=== PATIENT | female | born 1935 | race Caucasian/White ===

== ENCOUNTER 2016-07-03 18:23 | Emergency (ER) | payer MEDICARE, BC ==
--- NOTE | 2016-07-03 18:49 | EDM.PDOC ---
ED HISTORY OF PRESENT ILLNESS - General Chief Complaint: Cardiovascular Problem Stated Complaint: high BP Time Seen by Provider: 07/03/16 18:25 Source: Reports: Patient History Limitations: Reports: No limitations - History of Present Illness INITIAL COMMENTS - FREE TEXT/NARRATIVE: According to patient she claims that she checked her blood pressure at home and it was 215/100mmhg. She did not have any symptoms , but wanted to have it rechecked and hence she came into emergency room. Pt claims that she has hypertension and on lisinopril 10mg daily. her primary care provider is in [place]. No chest pain, headache, weakness, nausea or vomiting. Other colon she feels fine. Pt claims that she does use herbal medicine, believes in alternative medicines. Her herbal specialist has told her that her blood pressure might go up on the herbs she is taking. She takes 3 different herbs.If her blood pressure elevates , she has been advised to stop it for few weeks and restart. She restarted it in April 2016. Pt claims that she can feel when her BP is elevated. also her herbal specialist has told her that she has ulcer in her stomach. Associated Symptoms: Denies: confusion, chest pain, cough, diaphoresis, fever/ chills, headaches, nausea/vomiting, rash, seizure, shortness of breath, syncope , weakness - Related Data Allergies/ADRs: Allergies Allergy/AdvReac Type Severity Reaction Status Date / Time pseudoephedrine Allergy Tachycardia Verified 07/03/16 18:54 [From [facility]] Home Meds: Home Meds Lisinopril 10 mg PO DAILY 07/03/16 [History] ED ROS GENERAL - Review of Systems Review Of Systems: See Below Constitutional: Denies: fever, chills, weakness, diaphoresis HEENT: Denies: Ear pain, Eye discharge, Sinus problem, Throat pain, Throat swelling Respiratory: Denies: Shortness of Breath, Cough, Sputum Cardiovascular: Denies: Chest pain, Edema, Lightheadedness GI/Abdominal: Denies: Abdominal pain, Constipation, Diarrhea, Nausea, Vomiting Musculoskeletal: Reports: shoulder pain (shoulder have been hurting as she has been doing yard work). Denies: neck pain, joint pain, joint swelling Skin: Denies: pruritis, rash Neurological: Denies: Confusion, Dizziness, Headache, Numbness, Tingling, Tremors, Trouble Speaking, Difficulty Walking, Weakness, Change in Speech, Gait Disturbance Psychiatric: Denies: Agitation, Anxiety ED EXAM, GENERAL - Physical Exam Exam: See Below Exam Limited By: No limitations General Appearance: alert, WD/WN, no apparent distress Eye Exam: bilateral eye: EOMI, PERRL Ears: normal external exam, normal canal, hearing grossly normal, normal TMs Ear Exam: bilateral ear: auricle normal, canal normal, TM normal Nose: normal inspection, normal mucosa, no blood Throat/Mouth: Normal inspection, Normal lips, Normal teeth, Normal gums, Normal oropharynx, Normal voice, No airway compromise Head: atraumatic, normocephalic Neck: normal inspection, supple, non-tender, full range of motion Respiratory/Chest: no respiratory distress, lungs clear, normal breath sounds, no accessory muscle use, chest non-tender Cardiovascular: normal peripheral pulses, regular rate, rhythm, no edema, no gallop, no JVD, no murmur, no rub Peripheral Pulses: 2+: radial (L), radial (R), dorsalis pedis (L), dorsalis pedis (R) GI/Abdominal: normal bowel sounds, soft, non tender, no organomegaly, no distention, no abnormal bruit, no mass Extremities: normal inspection, normal range of motion, non-tender, normal capillary refill, no pedal edema Neurological: alert, oriented, CN II-XII intact, normal cognition, normal gait, normal reflexes, no motor/sensory deficits EKG INTERPRETATION EKG Date: 07/03/16 Rhythm: NSR Rate (beats/min): 82 [place]: normal P-wave: present QRS: normal ST-T: normal QT: normal Course - Vital Signs Text/Narrative:: Pt has no symptoms, but her blood pressure is 203/84mmhg. Clinical exam is normal. Her EKG is in normal sinus rhythm with rate of 82. She did receive Clonidine 0.1mg orally and her Blood did drop to 197/88mmhg. Apparently my concern is the herbal medication she has been taking. She does say that they rise her blood pressure and her herbal specialist has told her to stop and restart which she is doing. With her pressures going as high as they do , she is at risk for CVA or Acute coronary injury. I have advised patient to talk to her primary care physician about this. At this point, her CBC and CMP are normal. Her troponin is negative and her EKG is in normal sinus rhythm. She has been asymptomatic although the emergency room visit. Her Blood pressure did come down into 160s systolic. I have advised patient to stop the herbal medication and followup with her primary care physician tomorrow for quick recheck. Last Recorded V/S: Last Vital Signs Temp 99.9 F 07/03/16 19:00 Pulse 95 07/03/16 19:00 Resp 16 07/03/16 19:00 BP Pulse Ox - Orders/Labs/Meds Orders: Active Orders 24 hr Category Date Time Status EKG Documentation Completion [RC] ASDIRECTED Care 07/03/16 18:42 Active Labs: Laboratory Tests 07/03/16 07/03/16 Range/Units 18:43 18:43 WBC 9.0 (4.0-11.0) K/uL RBC 4.71 (3.80-5.80) M/uL Hgb 13.2 (11.5-16.5) g/dL Hct 40.7 (37.0-47.0) % MCV 86 (76-96) fL MCH 28.0 (27.0-32.0) pg MCHC 32.4 (31.0-35.0) g/dL RDW 13.2 (11.0-16.0) % Plt Count 297 (150-500) K/uL MPV 10.1 H (6.0-10.0) fL Neut % (Auto) 54.9 (45.0-70.0) % Lymph % (Auto) 37.3 (20.0-40.0) % [place] % (Auto) 7.1 (3.0-10.0) % Eos % (Auto) 0.6 L (1.0-5.0) % Baso % (Auto) 0.1 (0.0-0.5) % Neut # (Auto) 4.94 (2.00-7.50) K/uL Lymph # (Auto) 3.35 (1.50-4.00) K/uL [place] # (Auto) 0.64 (0.20-0.80) K/uL Eos # (Auto) 0.05 (0.04-0.40) K/uL Baso # (Auto) 0.01 L (0.02-0.10) K/uL Sodium 141 (136-145) mmol/L Potassium 4.4 (3.5-5.1) mmol/L Chloride 103 (98-107) mmol/L Carbon Dioxide 28.1 (21.0-32.0) mmol/L Anion Gap 14.3 (5.0-15.0) mmol/L BUN 24 D (8-26) mg/dL Creatinine 0.74 D (0.55-1.02) mg/dL Est Cr Clr Drug Dosing TNP Estimated GFR (MDRD) > 60 (>60) MLS/MIN BUN/Creatinine Ratio 32.4 H (6-25) Glucose 124 H D (74-100) mg/dL Calcium 10.5 H (8.5-10.1) mg/dL Total Bilirubin 0.2 D (0.0-1.0) mg/dL AST 22 (15-37) U/L ALT 27 (12-78) U/L Alkaline Phosphatase 98 (46-116) U/L Troponin I < 0.017 (0.000-0.060) ng/mL Total Protein 7.2 (6.4-8.2) g/dL Albumin 3.6 (3.4-5.0) g/dL Globulin 3.6 (2.2-4.2) g/dL Albumin/Globulin Ratio 1.0 (0.8-2.0) Departure - Departure Time of Disposition: 19:20 Disposition: Home, Self-Care 01 Condition: good Clinical Impression: Elevated blood pressure reading Forms: ED Department Discharge Additional Instructions: Pt has no symptoms, but her blood pressure is 203/84mmhg. Clinical exam is normal. Her EKG is in normal sinus rhythm with rate of 82. She did receive Clonidine 0.1mg orally and her Blood did drop to 197/88mmhg. Apparently my concern is the herbal medication she has been taking. She does say that they rise her blood pressure and her herbal specialist has told her to stop and restart which she is doing. With her pressures going as high as they do , she is at risk for CVA or Acute coronary injury. I have advised patient to talk to her primary care physician about this. At this point, her CBC and CMP are normal. Her troponin is negative and her EKG is in normal sinus rhythm. She has been asymptomatic although the emergency room visit. Her Blood pressure did come down into 160s systolic. At the time of discharge it did come down to 150/90mmhg. I have advised patient to stop the herbal medication and followup with her primary care physician tomorrow for quick recheck. - Problem List & Annotations (1) Elevated blood pressure reading SNOMED Code(s): 90428577 Code(s): R03.0 - ELEVATED BLOOD-PRESSURE READING, W/O DIAGNOSIS OF HTN Status: Acute Current Visit: Yes - Problem List Review Problem List Initiated/Reviewed/Updated: Yes - My Orders Last 24 Hours: My Active Orders 07/03/16 18:42 EKG Documentation Completion [RC] ASDIRECTED - Assessment/Plan Last 24 Hours: My Active Orders 07/03/16 18:42 EKG Documentation Completion [RC] ASDIRECTED Assessment:: elevated Blood pressure Plan: Pt has no symptoms, but her blood pressure is 203/84mmhg. Clinical exam is normal. Her EKG is in normal sinus rhythm with rate of 82. She did receive Clonidine 0.1mg orally and her Blood did drop to 197/88mmhg.At the time of discharge it did come down to 150/90mmhg Apparently my concern is the herbal medication she has been taking. She does say that they rise her blood pressure and her herbal specialist has told her to stop and restart which she is doing. With her pressures going as high as they do , she is at risk for CVA or Acute coronary injury. I have advised patient to talk to her primary care physician about this. At this point, her CBC and CMP are normal. Her troponin is negative and her EKG is in normal sinus rhythm. She has been asymptomatic although the emergency room visit. Her Blood pressure did come down into 160s systolic. At the time of discharge it did come down to 150/90mmhg.I have advised patient to stop the herbal medication and followup with her primary care physician tomorrow for quick recheck.
[2016-07-03] MEDS ORDERED: cloNIDine 0.1 MG Tab PO ONE (19:30)
[2016-07-03 19:35] VITALS: BP 203/84
== END 2016-07-03 19:45 | disposition home or self-care (01) ==
LOC: LB.ED 18:23
DX: R03.0 Elevated blood-pressure reading, without diagnosis of hypertension (principal); Z88.8 Allergy status to other drugs, medicaments and biological substances
CPT/HCPCS: 36415; 80053; 84484; 85025; 93005; 99283; 99284; A9270

== ENCOUNTER 2016-11-09 18:58 | Emergency (ER) | payer MEDICARE, BC ==
[2016-11-09] MEDS ORDERED: cloNIDine 0.1 MG Tab PO ONE (19:37)
--- NOTE | 2016-11-09 19:50 | EDM.PDOC ---
ED HPI GENERAL MEDICAL PROBLEM - General Chief Complaint: General Stated Complaint: elevated blood pressure Time Seen by Provider: 11/09/16 19:15 Source of Information: Reports: Patient History Limitations: Reports: No Limitations - History of Present Illness INITIAL COMMENTS - FREE TEXT/NARRATIVE: has a hx of hypertension; today; she felt like her BP was high, felt a weird feeling in her head and she came in. [facility] and she is on some herbs and thinks this is what is causing it on lisinopril 10mg daily; PCP in [place] Onset: Today Location: Reports: Head Severity: Moderate Improves with: Reports: None Worsens with: Reports: None Associated Symptoms: Reports: Other (lightheaded) - Related Data Allergies Allergy/AdvReac Type Severity Reaction Status Date / Time pseudoephedrine AdvReac Tachycardia Verified 07/03/16 19:57 [From [facility]] Home Meds: Home Meds Lisinopril 10 mg PO DAILY 07/03/16 [History] Past Medical History HEENT History: Reports: Cataract, Macular Degeneration Cardiovascular History: Reports: Hypertension Respiratory History: Reports: Other (See Below) Other Respiratory History: PATIENT HAD PNEUMONIA 2 YEARS AGO, WAS TREATED FOR 2 1.2 WEEKS OF ANTIBIOTICS (WAS IN [facility]), HAD NODULES ON HER LUNGS AND RETURNED EVERY 6 MONTHS FOR CHECK UPS BUT THEY DID NOT DO ANYTHING AND FELT THEY WERE BENIGN Gastrointestinal History: Reports: Other (See Below) Other Gastrointestinal History: FEELS SHE MIGHT HAVE A HERNIA BUT NOT ACTUALLY 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 ALSO HAD IODINE TREATMENT - Infectious Disease History Infectious Disease History: Reports: Chicken Pox - Past Surgical History HEENT Surgical History: Reports: Cataract Surgery Social & Family History - Family History Family Medical History: Noncontributory - Tobacco Use Smoking Status *Q: Never Smoker Second Hand Smoke Exposure: No - Caffeine Use Caffeine Use: Reports: None - Recreational Drug Use Recreational Drug Use: No ED ROS GENERAL - Review of Systems Review Of Systems: See Below Constitutional: Reports: Other (lightheaded) Respiratory: Reports: No Symptoms Cardiovascular: Reports: No Symptoms Endocrine: Reports: Fatigue GI/Abdominal: Reports: No Symptoms Skin: Reports: No Symptoms Psychiatric: Reports: No Symptoms ED EXAM, GENERAL - Physical Exam Exam: See Below Exam Limited By: No Limitations General Appearance: Alert, WD/WN Eye Exam: Bilateral Eye: EOMI, PERRL Head: Atraumatic, Normocephalic Neck: Normal Inspection, Non-Tender, Full Range of Motion Respiratory/Chest: No Respiratory Distress, Lungs Clear, Normal Breath Sounds Cardiovascular: Normal Peripheral Pulses, Regular Rate, Rhythm GI/Abdominal: Normal Bowel Sounds, Soft, Non-Tender Back Exam: Full Range of Motion Extremities: Normal Range of Motion Neurological: Alert, Oriented, CN II-XII Intact, Normal Cognition, Normal Gait, Normal Reflexes, No Motor/Sensory Deficits Psychiatric: Normal Affect, Normal Mood Skin Exam: Warm, Dry, Intact Course - Vital Signs Last Recorded V/S: Last Vital Signs Temp Pulse Resp BP 186/81 H 11/09/16 19:43 Pulse Ox - Orders/Labs/Meds Meds: Medications Discontinued Medications Generic Name Dose Route Start Last Admin Trade Name Allison PRN Reason Stop Dose Admin Clonidine HCl 0.1 mg 11/09/16 19:37 11/09/16 19:43 Catapres PO 11/09/16 19:38 0.1 mg ONETIME ONE Administration - Re-Assessments/Exams Free Text/Narrative Re-Assessment/Exam: 11/09/16 19:50 Clonidine 0.1 mg given po for BP 180's/ symptomatic 11/09/16 20:55 Manual recheck of BP 178/76 She is feeling much better; not near as flushed. Departure - Departure Time of Disposition: 21:00 Disposition: Home, Self-Care 01 Condition: Good Clinical Impression: Hypertension - Discharge Information Instructions: Hypertension, [id number] Referrals: PCP,None [Primary Care Provider] - Forms: ED Department Discharge - Problem List & Annotations (1) Hypertension SNOMED Code(s): 52363830 Code(s): I10 - ESSENTIAL (PRIMARY) HYPERTENSION Status: Acute Priority: Medium Current Visit: Yes - Problem List Review Problem List Initiated/Reviewed/Updated: Yes - Assessment/Plan Plan: She is doing better; She is requesting to be discharged I recommend she lay off the herbs; follow up with PCP Push fluids/rest and relax. Return with any concerns
[2016-11-10 01:06] VITALS: BP 178/76
== END 2016-11-09 20:45 | disposition home or self-care (01) ==
LOC: LB.ED 18:58
DX: I10 Essential (primary) hypertension (principal); M19.90 Unspecified osteoarthritis, unspecified site; M81.0 Age-related osteoporosis without current pathological fracture; Z88.8 Allergy status to other drugs, medicaments and biological substances; Z79.899 Other long term (current) drug therapy
CPT/HCPCS: 99283; A9270

== ENCOUNTER 2017-04-12 13:00 | Emergency (ER) | payer MEDICARE, BC ==
--- NOTE | 2017-04-12 13:40 | EDM.PDOC ---
ED HPI GENERAL MEDICAL PROBLEM - General Chief Complaint: Cardiovascular Problem Stated Complaint: High Blood Pressure Time Seen by Provider: 04/12/17 13:20 Source of Information: Reports: Patient, RN History Limitations: Reports: No Limitations - History of Present Illness INITIAL COMMENTS - FREE TEXT/NARRATIVE: 81 yr female presents with elevated BP at home and just not feeling right. States she lives in [place] and came here with this BP of aroun 160/90 today. She takes Lisinopril and she took an extra pill today, when she saw her high blood pressure. 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 Had a goiter and had part of thyroid remove. States she saw an herbal Dr and was started on iodine, tumeric and fish oil in January, but can' t remember when they were started. She is feeling some anxious with this. States no caffeine intake and had some oatmeal for breakfast. States hx of hiatal hernia. Headache Pain Score (Numeric/FACES): 2 - Related Data Allergies Allergy/AdvReac Type Severity Reaction Status Date / Time pseudoephedrine AdvReac Tachycardia Verified 04/12/17 13:29 [From [facility]] Home Meds: Home Meds Lisinopril 10 mg PO DAILY 07/03/16 [History] Past Medical History HEENT History: Reports: Cataract, Macular Degeneration Cardiovascular History: Reports: Hypertension Respiratory History: Reports: Other (See Below) Other Respiratory History: PATIENT HAD PNEUMONIA 2 YEARS AGO, WAS TREATED FOR 2 1.2 WEEKS OF ANTIBIOTICS (WAS IN [facility]), HAD NODULES ON HER LUNGS AND RETURNED EVERY 6 MONTHS FOR CHECK UPS BUT THEY DID NOT DO ANYTHING AND FELT THEY WERE BENIGN Gastrointestinal History: Reports: Other (See Below) Other Gastrointestinal History: FEELS SHE MIGHT HAVE A HERNIA BUT NOT 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 ALSO HAD IODINE TREATMENT - Infectious Disease History Infectious Disease History: Reports: Chicken Pox - Past Surgical History HEENT Surgical History: Reports: Cataract Surgery Social & Family History - Family History Family Medical History: Noncontributory - Tobacco Use Smoking Status *Q: Never Smoker Second Hand Smoke Exposure: No - Caffeine Use Caffeine Use: Reports: None - Recreational Drug Use Recreational Drug Use: No ED ROS GENERAL - Review of Systems Review Of Systems: See Below Constitutional: Reports: No Symptoms HEENT: Reports: Other (macular degeneration) Respiratory: Reports: No Symptoms Cardiovascular: Reports: Blood Pressure Problem. Denies: Chest Pain, Edema Endocrine: Reports: No Symptoms GI/Abdominal: Reports: No Symptoms Musculoskeletal: Reports: Shoulder Pain (slight pain to shoulders today) Skin: Reports: No Symptoms Neurological: Reports: No Symptoms Psychiatric: Reports: Anxiety ED EXAM, GENERAL - Physical Exam Exam: See Below Exam Limited By: No Limitations General Appearance: Alert, No Apparent Distress Throat/Mouth: Normal Voice, No Airway Compromise Head: Atraumatic, Normocephalic Neck: Normal Inspection, Supple, Non-Tender Respiratory/Chest: No Respiratory Distress, Lungs Clear Cardiovascular: Normal Peripheral Pulses, Regular Rate, Rhythm, No Edema GI/Abdominal: Normal Bowel Sounds, Soft, Non-Tender Extremities: Normal Inspection, Normal Range of Motion, No Pedal Edema Neurological: Alert, Oriented, Normal Cognition Psychiatric: Normal Affect, Normal Mood Skin Exam: Warm, Dry, Normal Color Lymphatic: No Adenopathy Course - Vital Signs Last Recorded V/S: Last Vital Signs Temp 99.9 F 04/12/17 13:26 Pulse 96 04/12/17 15:09 Resp 20 04/12/17 13:26 BP 170/94 H 04/12/17 16:23 Pulse Ox 98 04/12/17 13:26 - Orders/Labs/Meds Orders: Active Orders 24 hr Category Date Time Status Ready for Discharge [RC] PER UNIT ROUTINE Care 04/12/17 16:38 Active Labs: Laboratory Tests 04/12/17 04/12/17 04/12/17 Range/Units 13:45 13:45 13:45 WBC 6.4 D (4.0-11.0) K/uL RBC 4.92 (3.80-5.80) M/uL Hgb 13.8 (11.5-16.5) g/dL Hct 42.4 (37.0-47.0) % MCV 86 (76-96) fL MCH 28.0 (27.0-32.0) pg MCHC 32.5 (31.0-35.0) g/dL RDW 14.0 (11.0-16.0) % Plt Count 249 (150-500) K/uL MPV 10.5 H (6.0-10.0) fL Neut % (Auto) 63.1 (45.0-70.0) % Lymph % (Auto) 30.6 (20.0-40.0) % [place] % (Auto) 5.5 (3.0-10.0) % Eos % (Auto) 0.6 L (1.0-5.0) % Baso % (Auto) 0.2 (0.0-0.5) % Neut # (Auto) 4.02 (2.00-7.50) K/uL Lymph # (Auto) 1.95 (1.50-4.00) K/uL [place] # (Auto) 0.35 (0.20-0.80) K/uL Eos # (Auto) 0.04 (0.04-0.40) K/uL Baso # (Auto) 0.01 L (0.02-0.10) K/uL Sodium 141 (136-145) mmol/L Potassium 4.0 (3.5-5.1) mmol/L Chloride 102 (98-107) mmol/L Carbon Dioxide 28.9 (21.0-32.0) mmol/L Anion Gap 14.1 (5.0-15.0) mmol/L BUN 19 D (8-26) mg/dL Creatinine 0.82 (0.55-1.02) mg/dL Est Cr Clr Drug Dosing TNP Estimated GFR (MDRD) > 60 (>60) MLS/MIN BUN/Creatinine Ratio 23.2 (6-25) Glucose 133 H (74-100) mg/dL Calcium 10.5 H (8.5-10.1) mg/dL Total Bilirubin 0.4 D (0.0-1.0) mg/dL AST 19 (15-37) U/L ALT 21 (12-78) U/L Alkaline Phosphatase 93 (46-116) U/L Total Protein 7.8 (6.4-8.2) g/dL Albumin 3.9 (3.4-5.0) g/dL Globulin 3.9 (2.2-4.2) g/dL Albumin/Globulin Ratio 1.0 (0.8-2.0) TSH, Ultra Sensitive 0.149 L D (0.358-3.740) uIU/mL Meds: Medications Discontinued Medications Generic Name Dose Route Start Last Admin Trade Name Allison PRAndreea Reason Stop Dose Admin Clonidine HCl Confirm 04/12/17 14:56 04/12/17 14:55 Catapres Administered 04/12/17 14:57 0.1 mg Dose Administration 0.1 mg .ROUTE .STK-MED ONE - Re-Assessments/Exams Free Text/Narrative Re-Assessment/Exam: 04/12/17 17:40 LE Reviewed of lab results with pt and . TSH is low. Recommend stopping her herbal medication for thyroid. Clonidine 0.1mg PO given for BP. Monitored pt and BP decreased from baseline. Pt sitting on edge of stretcher and in no acute distress. States feels better. Recommend F/U with PCP to discuss BP and work-up. Pt discharged to care of . Departure - Departure Time of Disposition: 16:35 Disposition: Home, Self-Care 01 Condition: Good Clinical Impression: Hypertension Instructions: Hypertension, [id number] Referrals: PCP,None [Primary Care Provider] - Forms: ED Department Discharge Additional Instructions: Stop taking herbal medications for a little while until your BP comes back down to normal. Decrease the amount of salt in your diet. Follow up with your primary doctor. - My Orders Last 24 Hours: My Active Orders 04/12/17 16:38 Ready for Discharge [RC] PER UNIT ROUTINE - Assessment/Plan Last 24 Hours: My Active Orders 04/12/17 16:38 Ready for Discharge [RC] PER UNIT ROUTINE
[2017-04-12] MEDS ORDERED: cloNIDine 0.1 MG Tab ONE (14:56)
[2017-04-12 16:24] VITALS: BP 170/94
== END 2017-04-12 16:50 | disposition home or self-care (01) ==
LOC: LB.ED 13:00
DX: I10 Essential (primary) hypertension (principal); Z88.8 Allergy status to other drugs, medicaments and biological substances; Z79.899 Other long term (current) drug therapy; Z87.01 Personal history of pneumonia (recurrent)
CPT/HCPCS: 36415; 80053; 84443; 85025; 99283; 99284; A9270

== ENCOUNTER 2018-07-03 01:38 | Emergency (ER) | payer BC, MEDICARE ==
[2018-07-03 01:58] VITALS: BP 175/86
== END 2018-07-03 02:07 | disposition home or self-care (01) ==
LOC: LB.ED 01:38
DX: Z01.31 Encounter for examination of blood pressure with abnormal findings (principal)
CPT/HCPCS: 99281

== ENCOUNTER 2018-07-27 17:07 | Emergency (ER) | payer MEDICARE ==
--- NOTE | 2018-07-27 20:19 | EDM.PDOC ---
ED HPI GENERAL MEDICAL PROBLEM - General Stated Complaint: FALL - HIT HEAD Time Seen by Provider: 07/27/18 19:45 Source of Information: Reports: Patient History Limitations: Reports: No Limitations - History of Present Illness INITIAL COMMENTS - FREE TEXT/NARRATIVE: According to patient she was washing her hair in the bath room and water was running over the face and she bent forward and lost balance fell and hit the left side of the occipital region of the head. This happened around 1:30Pm today. Pt claims there was no loss of consciousness with fall, No nausea or vomiting, no headache, no blurry vision , no shortness of breath. No confusion. Pt is here to make sure that she does not have head injury. Onset: Today Onset Date: 07/27/18 Onset Time: 13:30 Duration: Improving Severity: Mild Improves with: Reports: None Worsens with: Reports: None Associated Symptoms: Denies: Confusion, Chest Pain, Cough, Diaphoresis, Fever/ Chills, Headaches, Malaise, Nausea/Vomiting, Rash, Seizure, Shortness of Breath , Syncope, Weakness - Related Data Allergies Allergy/AdvReac Type Severity Reaction Status Date / Time pseudoephedrine AdvReac Tachycardia Verified 04/12/17 13:29 [From [facility]] Home Meds: Home Meds Lisinopril 10 mg PO DAILY 07/03/16 [History] Past Medical History HEENT History: Reports: Cataract, Macular Degeneration Cardiovascular History: Reports: Hypertension Respiratory History: Reports: Other (See Below) Other Respiratory History: PATIENT HAD PNEUMONIA 2 YEARS AGO, WAS TREATED FOR 2 1.2 WEEKS OF ANTIBIOTICS (WAS IN [facility]), HAD NODULES ON HER LUNGS AND RETURNED EVERY 6 MONTHS FOR CHECK UPS BUT THEY DID NOT DO ANYTHING AND FELT THEY WERE BENIGN Gastrointestinal History: Reports: Other (See Below) Other Gastrointestinal History: FEELS SHE MIGHT HAVE A HERNIA BUT NOT ACTUALLY DIAGNOSED 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 ALSO HAD IODINE TREATMENT - Infectious Disease History Infectious Disease History: Reports: Chicken Pox - Past Surgical History HEENT Surgical History: Reports: Cataract Surgery Social & Family History - Family History Family Medical History: Noncontributory - Caffeine Use Caffeine Use: Reports: None ED ROS GENERAL - Review of Systems Review Of Systems: See Below Constitutional: Denies: Fever, Chills, Malaise HEENT: Denies: Ear Pain, Rhinitis, Throat Pain Respiratory: Denies: Shortness of Breath, Pleuritic Chest Pain, Cough, Sputum Cardiovascular: Denies: Chest Pain, Lightheadedness GI/Abdominal: Denies: Abdominal Pain, Nausea, Vomiting : Denies: Dysuria, Frequency Musculoskeletal: Denies: Joint Pain, Joint Swelling Skin: Denies: Bruising, Pruritis, Rash Neurological: Denies: Confusion, Dizziness, Headache, Numbness, Paresthesia, Tingling, Difficulty Walking, Weakness, Change in Speech ED EXAM, GENERAL - Physical Exam Exam: See Below Exam Limited By: No Limitations General Appearance: Alert, WD/WN, No Apparent Distress Eye Exam: Bilateral Eye: EOMI, PERRL Ear Exam: Bilateral Ear: Auricle Normal, Canal Normal, TM normal Nose: Normal Inspection, Normal Mucosa, No Blood Throat/Mouth: Normal Inspection, Normal Lips, Normal Teeth, Normal Gums, Normal Oropharynx, Normal Voice, No Airway Compromise Head: Normocephalic, Other (mild tenderness in the left occipital region, but no scalp swelling noted.). No: Facial Swelling, Facial Tenderness, Sinus Tenderness Neck: Normal Inspection, Supple, Non-Tender, Full Range of Motion, Other ( tender over the suprascapular region over the trapezius muscle) Respiratory/Chest: No Respiratory Distress, Lungs Clear, Normal Breath Sounds, No Accessory Muscle Use, Chest Non-Tender Cardiovascular: Normal Peripheral Pulses, Regular Rate, Rhythm, No Edema, No Gallop, No JVD, No Murmur, No Rub GI/Abdominal: Normal Bowel Sounds, Soft, Non-Tender, No Organomegaly, No Distention, No Abnormal Bruit, No Mass Extremities: Normal Inspection, Normal Range of Motion, Non-Tender, Normal Capillary Refill, No Pedal Edema Neurological: Alert, Oriented, CN II-XII Intact, Normal Cognition, Normal Gait, Normal Reflexes, No Motor/Sensory Deficits Course - Vital Signs Text/Narrative:: Pt's neuro exam appears normal. She does not have any signs or symptoms of head injury. Clinical exam appear normal other than supper shoulder muscle strain. She does have normal range of motion of the neck.I have advised Tylenol 500mg every 6 hrs as needed. Hot and cold compresses to the neck and shoulder. I have advised patient to return to emergency room if she develops sudden onset of severe headache, nausea, vomiting, blurry vision, vision loss, confusion, shortness of breath, weakness in the extremities in next 24 hrs. Otherwise followup with her primary care provider on Monday for recheck. Departure - Departure Time of Disposition: 20:30 Disposition: Home, Self-Care 01 Condition: Good Clinical Impression: Head injury - Discharge Information *PRESCRIPTION DRUG MONITORING PROGRAM REVIEWED*: Not Applicable *COPY OF PRESCRIPTION DRUG MONITORING REPORT IN PATIENT ANGEL: Not Applicable Referrals: PCP,None [Primary Care Provider] - Additional Instructions: Pt's neuro exam appears normal. She does not have any signs or symptoms of head injury. Clinical exam appear normal other than supper shoulder muscle strain. She does have normal range of motion of the neck.I have advised Tylenol 500mg every 6 hrs as needed. Hot and cold compresses to the neck and shoulder. I have advised patient to return to emergency room if she develops sudden onset of severe headache, nausea, vomiting, blurry vision, vision loss, confusion, shortness of breath, weakness in the extremities in next 24 hrs. Otherwise followup with her primary care provider on Monday for recheck. - Problem List & Annotations (1) Head injury SNOMED Code(s): 86526372 Code(s): S09.90XA - UNSPECIFIED INJURY OF HEAD, INITIAL ENCOUNTER Status: Acute Current Visit: Yes - Problem List Review Problem List Initiated/Reviewed/Updated: Yes - Assessment/Plan Assessment:: external head injury Plan: Pt's neuro exam appears normal. She does not have any signs or symptoms of head injury. Clinical exam appear normal other than supper shoulder muscle strain. She does have normal range of motion of the neck.I have advised Tylenol 500mg every 6 hrs as needed. Hot and cold compresses to the neck and shoulder. I have advised patient to return to emergency room if she develops sudden onset of severe headache, nausea, vomiting, blurry vision, vision loss, confusion, shortness of breath, weakness in the extremities in next 24 hrs. Otherwise followup with her primary care provider on Monday for recheck.
== END 2018-07-27 20:35 | disposition home or self-care (01) ==
LOC: LB.ED 17:07
DX: S09.90XA Unspecified injury of head, initial encounter (principal); I10 Essential (primary) hypertension; F32.9 Major depressive disorder, single episode, unspecified; Z88.8 Allergy status to other drugs, medicaments and biological substances; Z79.899 Other long term (current) drug therapy; W19.XXXA Unspecified fall, initial encounter
CPT/HCPCS: 99282

== ENCOUNTER 2019-09-05 10:01 | Emergency (ER) | payer MEDICARE ==
[2019-09-05] MEDS ORDERED: Labetalol 100 MG/20 ML MDV IVPUSH ONE ×2 (10:57→12:08)
[2019-09-05 11:39] VITALS: PULSE 79
[2019-09-05 12:48] VITALS: BP 167/85
--- NOTE | 2019-09-05 12:58 | EDM.PDOC ---
ED HPI GENERAL MEDICAL PROBLEM - General Chief Complaint: General Stated Complaint: bp CHECK Time Seen by Provider: 09/05/19 10:25 Source of Information: Reports: Patient History Limitations: Reports: No Limitations - History of Present Illness INITIAL COMMENTS - FREE TEXT/NARRATIVE: This is an 83yo F here for concerns of her BP. She has been on Lisinopril in the past and was switched to Losartan due to coughing. She denies any prior poor management of her HTN. She does see a PCP in [place] but resides in [place]. She denies any other concerns or issues. No headache, no weakness, no chest pain or shortness of breath. No other concerns. Onset: Unknown/Unsure Duration: Constant Severity: Mild Improves with: Reports: None Worsens with: Reports: None Associated Symptoms: Reports: No Other Symptoms - Related Data Allergies Allergy/AdvReac Type Severity Reaction Status Date / Time pseudoephedrine AdvReac Tachycardia Verified 04/12/17 13:29 [From [facility]] Home Meds: Home Meds Lisinopril 10 mg PO DAILY 07/03/16 [History] Past Medical History HEENT History: Reports: Cataract, Macular Degeneration Cardiovascular History: Reports: Hypertension Respiratory History: Reports: Other (See Below) Other Respiratory History: PATIENT HAD PNEUMONIA 2 YEARS AGO, WAS TREATED FOR 2 1.2 WEEKS OF ANTIBIOTICS (WAS IN [facility]), HAD NODULES ON HER LUNGS AND RETURNED EVERY 6 MONTHS FOR CHECK UPS BUT THEY DID NOT DO ANYTHING AND FELT THEY WERE BENIGN Gastrointestinal History: Reports: Other (See Below) Other Gastrointestinal History: FEELS SHE MIGHT HAVE A HERNIA BUT NOT ACTUALLY DIAGNOSED 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 ALSO HAD IODINE TREATMENT - Infectious Disease History Infectious Disease History: Reports: Chicken Pox - Past Surgical History HEENT Surgical History: Reports: Cataract Surgery Female Surgical History: Reports: D&C Dermatological Surgical History: Reports: None Social & Family History - Family History Family Medical History: Noncontributory - Tobacco Use Smoking Status *Q: Never Smoker Second Hand Smoke Exposure: No - Caffeine Use Caffeine Use: Reports: None - Recreational Drug Use Recreational Drug Use: No ED ROS GENERAL - Review of Systems Review Of Systems: Comprehensive ROS is negative, except as noted in HPI. ED EXAM, GENERAL - Physical Exam Exam: See Below Exam Limited By: No Limitations General Appearance: Alert, WD/WN, No Apparent Distress Eye Exam: Bilateral Eye: EOMI, PERRL Ears: Normal External Exam Nose: Normal Inspection Throat/Mouth: Normal Inspection Head: Atraumatic, Normocephalic Neck: Normal Inspection Respiratory/Chest: No Respiratory Distress, Lungs Clear, Normal Breath Sounds Cardiovascular: Normal Peripheral Pulses, Regular Rate, Rhythm GI/Abdominal: Normal Bowel Sounds Extremities: Normal Inspection Neurological: Alert, Oriented, CN II-XII Intact Psychiatric: Normal Affect, Normal Mood Skin Exam: Warm, Dry, Intact Course - Vital Signs Last Recorded V/S: Last Vital Signs Temp 37.2 C 09/05/19 10:12 Pulse 79 09/05/19 10:48 Resp 20 09/05/19 10:48 BP 167/85 H 09/05/19 12:20 Pulse Ox 99 09/05/19 10:48 - Orders/Labs/Meds Orders: Active Orders 24 hr Category Date Time Status EKG Documentation Completion [RC] ASDIRECTED Care 09/05/19 10:59 Active Chest 1V Frontal [CR] Stat Exams 09/05/19 10:56 Taken Labs: Laboratory Tests 09/05/19 09/05/19 Range/Units 11:05 11:05 WBC 9.5 D (4.0-11.0) K/uL RBC 4.82 (3.80-5.80) M/uL Hgb 13.2 (11.5-16.5) g/dL Hct 41.2 (37.0-47.0) % MCV 86 (76-96) fL MCH 27.4 (27.0-32.0) pg MCHC 32.0 (31.0-35.0) g/dL RDW 13.5 (11.0-16.0) % Plt Count 331 D (150-500) K/uL MPV 9.6 (6.0-10.0) fL Neut % (Auto) 79.8 H (45.0-70.0) % Lymph % (Auto) 13.9 L (20.0-40.0) % Harnett % (Auto) 5.9 (3.0-10.0) % Eos % (Auto) 0.2 L (1.0-5.0) % Baso % (Auto) 0.2 (0.0-0.5) % Neut # (Auto) 7.61 H (2.00-7.50) K/uL Lymph # (Auto) 1.33 L (1.50-4.00) K/uL Harnett # (Auto) 0.56 (0.20-0.80) K/uL Eos # (Auto) 0.02 L (0.04-0.40) K/uL Baso # (Auto) 0.02 (0.02-0.10) K/uL Sodium 138 (136-145) mmol/L Potassium 4.2 (3.5-5.1) mmol/L Chloride 100 (98-107) mmol/L Carbon Dioxide 26.8 (21.0-32.0) mmol/L Anion Gap 15.4 H (5.0-15.0) mmol/L BUN 14 D (8-26) mg/dL Creatinine 0.71 (0.55-1.02) mg/dL Est Cr Clr Drug Dosing TNP Estimated GFR (MDRD) > 60 (>60) MLS/MIN BUN/Creatinine Ratio 19.7 (6-25) Glucose 134 H (74-100) mg/dL Calcium 9.7 (8.5-10.1) mg/dL Troponin I < 0.017 (0.000-0.060) ng/mL Meds: Medications Discontinued Medications Generic Name Dose Route Start Last Admin Trade Name Allison PRN Reason Stop Dose Admin Labetalol HCl 20 mg 09/05/19 10:57 09/05/19 11:25 Normodyne IVPUSH 09/05/19 10:58 20 mg ONETIME ONE Administration Protocol Labetalol HCl 40 mg 09/05/19 12:08 Normodyne IVPUSH 09/05/19 12:09 ONETIME ONE Protocol Departure - Departure Time of Disposition: 13:00 Disposition: Home, Self-Care 01 Condition: Good Clinical Impression: Hypertension Qualifiers: Hypertension type: essential hypertension Qualified Code(s): I10 - Essential (primary) hypertension - Discharge Information Referrals: PCP,None [Primary Care Provider] - Forms: ED Department Discharge Additional Instructions: Increase Losartan to 50mg daily from previously prescribed dose of 25mg. Follow up with regular provider as planned. Should blood pressure elevate quickly again, return to ER for further evaluation. Call with any questions. Care Plan Goals: Counseled on f/u with PCP in 1 week for recheck and for any further concerns. Discussed continued BP monitoring and rtc or ER if BP remains very elevated. Counseled on close monitoring. Discussed medication adjustment for BP control and if BP remains elevated to see her PCP for adjustment and if unable to contact PCP or see them to come to the ER or Urgent care. F/u accordingly. Sepsis Event Note (ED) - Evaluation Sepsis Screening Result: No Definite Risk - Focused Exam Vital Signs: Vital Signs Temp Pulse Resp BP BP Pulse Ox 09/05/19 12:20 167/85 H 09/05/19 12:10 178/99 H 09/05/19 12:00 165/94 H 09/05/19 11:50 159/91 H 09/05/19 11:40 153/85 H 09/05/19 11:39 199/111 H 09/05/19 11:38 146/83 H 09/05/19 11:36 146/78 H 09/05/19 11:34 146/81 H 09/05/19 11:32 138/79 09/05/19 11:30 128/70 09/05/19 11:28 131/73 09/05/19 11:26 141/77 H 09/05/19 11:24 184/78 H 09/05/19 11:23 218/126 H 09/05/19 10:48 79 20 198/121 H 99 09/05/19 10:28 89 20 180/101 H 99 09/05/19 10:12 37.2 C 97 22 H 203/105 H 99 09/05/19 10:10 37.2 C 104 H 22 H 203/105 H 99 - My Orders Last 24 Hours: My Active Orders 09/05/19 10:56 Chest 1V Frontal [CR] Stat 09/05/19 10:59 EKG Documentation Completion [RC] ASDIRECTED - Assessment/Plan Last 24 Hours: My Active Orders 09/05/19 10:56 Chest 1V Frontal [CR] Stat 09/05/19 10:59 EKG Documentation Completion [RC] ASDIRECTED
--- NOTE | 2019-09-05 17:37 | CR ---
DATE OF SERVICE: 09/05/19 CLINICAL DATA: Dizziness, HTN AP CHEST: No priors. The heart size is within normal limits. There is calcification of the aortic arch. There are scattered reticular opacities throughout both lungs. There are subtle ground glass opacities in both lungs also suggesting pneumonia/pneumonitis. No areas of consolidation. No pneumothorax. No pleural effusion. [id number] MTDD
== END 2019-09-05 12:30 | disposition home or self-care (01) ==
LOC: LB.ED 10:01
DX: I10 Essential (primary) hypertension (principal); Z88.8 Allergy status to other drugs, medicaments and biological substances; Z79.899 Other long term (current) drug therapy
CPT/HCPCS: 36415; 71045; 80048; 84484; 85025; 93005; 96374; 99284; J3490